=== PATIENT | female | born 1990 | race Two or more races ===

== ENCOUNTER 2017-10-18 09:25 | Emergency (ER) | payer MEDICAID ==
[~2017-10-18] VITALS: Ht 142.2 cm; Wt 72.6 kg
[2017-10-18 09:25] VITALS: BP 159/92
[2017-10-18] MEDS ORDERED: METOCLOPRAMIDE HCL 10 MG/2 ML VIAL ONE (10:22)
[2017-10-18] MEDS ORDERED: ACETAMINOPHEN ES 500 MG TABLET ONE (10:22)
[2017-10-18] MEDS ORDERED: IBUPROFEN 600 MG TABLET PO ONE (10:23)
[2017-10-18] MEDS: IBUPROFEN 600 MG TABLET PO ONE (10:29)
[2017-10-18] MEDS: METOCLOPRAMIDE HCL 10 MG/2 ML VIAL IM ONE (10:29)
[2017-10-18] MEDS: ACETAMINOPHEN ES 500 MG TABLET PO ONE (10:29)
--- NOTE | 2017-10-18 10:29 | NUR ---
REGLAN 10MG GIVEN ORDERED IM ON R DELTOID.
--- NOTE | 2017-10-18 11:10 | NUR ---
PT IS FEELING BETTER. VSS. Patient discharged to home in stable condition. Written and verbal after care instructions given. Patient verbalizes understanding of instruction.
== END 2017-10-18 11:24 | disposition home or self-care (01) ==
LOC: ER 09:27
DX: G43.909 Migraine, unspecified, not intractable, without status migrainosus (principal); Z98.890 Other specified postprocedural states
CPT/HCPCS: A4606; J2765; Z7610